=== PATIENT | male | born 1985 ===

== ENCOUNTER 2018-12-23 00:04 | Emergency (ER) | payer BC ==
[2018-12-23 01:35] VITALS: BP 132/81; RESP 16; TEMP 98.4
[2018-12-23 01:37] VITALS: O2SAT 98
--- NOTE | 2018-12-23 01:37 | ED PDOC ---
HPI: Chest Pain Time Seen by Provider: 12/23/18 00:22 Chief Complaint (Nursing): Chest Pain Chief Complaint (Provider): Chest Pain History Per: Patient History/Exam Limitations: no limitations Onset/Duration Of Symptoms: Hrs (x 1) Current Symptoms Are (Timing): Still Present Quality: "Pain" Associated Symptoms: denies: Diaphoresis Exacerbating Factors: Other (cannabis) Additional Complaint(s): 33 year old male with no significant medical history presents to the ED for evaluation of chest pain that began approximately 1 hour prior to arrival. Patient reports he smoked 1/2 of a marijuana cigarette and 45 minutes after developed chest pain and some mild shortness of breath. It is non-radiating and no associated with sweats. Patient states that he felt somewhat anxious after smoking it. Denies fever. PMD: none provided Past Medical History Reviewed: Historical Data, Nursing Documentation, Vital Signs Vital Signs: Last Vital Signs Temp 98.2 F 12/23/18 00:12 Pulse 73 12/23/18 00:12 Resp 18 12/23/18 00:12 BP 155/82 H 12/23/18 00:12 Pulse Ox 98 12/23/18 00:12 Primary Care Provider: FAMILY PROVIDER,NO - Medical History PMH: No Chronic Diseases - Surgical History Surgical History: No Surg Hx - Family History Family History: States: Unknown Family Hx - Social History Drugs: Cannabis - Allergies Allergies/Adverse Reactions: Allergies Allergy/AdvReac Type Severity Reaction Status Date / Time No Known Allergies Allergy Verified 12/23/18 00:25 Review of Systems ROS Statement: Except As Marked, All Systems Reviewed And Found Negative Constitutional: Negative for: Fever, Chills Cardiovascular: Positive for: Chest Pain Respiratory: Positive for: Shortness of Breath. Negative for: Cough Psych: Positive for: Anxiety Physical Exam - Reviewed Nursing Documentation Reviewed: Yes Vital Signs Reviewed: Yes - Physical Exam Appears: Positive for: Non-toxic, No Acute Distress Head Exam: Positive for: ATRAUMATIC, NORMAL INSPECTION, NORMOCEPHALIC Skin: Positive for: Normal Color, Warm, Dry Eye Exam: Positive for: EOMI, Normal appearance, PERRL Neck: Positive for: Normal, Painless ROM, Supple Cardiovascular/Chest: Positive for: Regular Rate, Rhythm. Negative for: Murmur Respiratory: Positive for: Normal Breath Sounds. Negative for: Respiratory Distress Gastrointestinal/Abdominal: Positive for: Normal Exam, Soft. Negative for: Tenderness Back: Positive for: Normal Inspection. Negative for: L CVA Tenderness, R CVA Tenderness Extremity: Positive for: Normal ROM (x 4). Negative for: Deformity Neurological/Psych: Positive for: Awake, Alert, Normal Tone, Oriented (x 3). Negative for: Motor/Sensory Deficits - ECG ECG Rhythm: Positive for: Normal QRS, Normal ST Segment. Negative for: ST/T Changes Rate: 60 O2 Sat by Pulse Oximetry: 98 (RA) Pulse Ox Interpretation: Normal Medical Decision Making Medical Decision Makin:47 Impression: likely non-cardiac chest pain; not concerned for ACS Likely pleuritic pain secondary to cannabis abuse Orders: --CXR --EKG --Motrin 600 mg PO 01:28 CXR and EKG are not significant for any clinical abnormalities. Patient reports improvement of symptoms and requires no further treatment in this ED. Scribe Attestation: Documented by Adrienne Trujillo, acting as a scribe for Gerhard Palomares MD Provider Scribe Attestation: All medical record entries made by the Scribe were at my direction and personally dictated by me. I have reviewed the chart and agree that the record accurately reflects my personal performance of the history, physical exam, medical decision making, and the department course for this patient. I have also personally directed, reviewed, and agree with the discharge instructions and disposition. Disposition - Clinical Impression Clinical Impression: Atypical chest pain - Patient ED Disposition Is Patient to be Admitted: No - Disposition Referrals: [facility] [Outside] [facility] [Outside] Stacy Alford MD [Staff Provider] - Disposition: Routine/Home Disposition Time: 01:28 Condition: IMPROVED Instructions: Chest Pain That Is Not Caused by the Heart (DC) Forms: [employer] (K[place]akh)
[2018-12-23 01:44] VITALS: PULSE 60
--- NOTE | 2018-12-23 07:53 | RAD ---
Date of service: 12/23/2018 HISTORY: chest pain COMPARISON: No prior. TECHNIQUE: Chest PA and lateral views FINDINGS: LUNGS: No active pulmonary disease. PLEURA: No significant pleural effusion identified. No pneumothorax apparent. CARDIOVASCULAR: No aortic atherosclerotic calcification present. Normal cardiac size. No pulmonary vascular congestion. OSSEOUS STRUCTURES: No significant abnormalities. VISUALIZED UPPER ABDOMEN: Normal. OTHER FINDINGS: None. IMPRESSION: No active disease.
--- NOTE | 2018-12-23 10:23 | CARD ---
APPROVED REPORT Date of service: 12/23/2018 EKG Measurement Heart [id number] <Conclusion> Normal sinus rhythm Normal ECG
== END 2018-12-23 01:35 | disposition home or self-care (01) ==
LOC: H.ER 00:04
DX: R07.89 Other chest pain (principal)